=== PATIENT | female | born 1955 | race Caucasian/White ===

== ENCOUNTER → 2016-10-23 | Outpatient (CLI) | payer OTHER | LOC: CT 08:00 | DX: R91.8 Other nonspecific abnormal finding of lung field (principal) | CPT/HCPCS: 71250 ==

== ENCOUNTER → 2020-11-10 | Outpatient (CLI) | payer OTHER ==
[~2020-11-10] MED LIST: ALBUTEROL0.63 MG/3 INH; CARISOPRODOL350 MG PO; CENTRUM SILVER1 EAC1 PO; CYMBALTA60 MG PO; ELIQUIS2.5 MG PO; GABAPENTIN800 MG PO; GLUCOPHAGE500 MG PO; MOBIC15 MG PO; NORCO 10-325 T1 EACH PO; NORVASC10 MG PO; PERCOCET 10-321 EACH PO; PHENERGAN 12.12.5 M1 PO; PROTONIX40 MG PO; SPIRIVA RESPIMAT4 GM INH; VASOTEC 10 MG T10 MG PO; VITAMIN B-12100 MCG PO; VITAMIN D35000 UNI1 PO; XANAX1 MG PO
== END ==
LOC: KOH-I 13:00
DX: Z87.891 Personal history of nicotine dependence (principal); J43.9 Emphysema, unspecified; R91.8 Other nonspecific abnormal finding of lung field
CPT/HCPCS: 71271

== ENCOUNTER 2021-05-04 17:38 | Emergency (ER) | payer OTHER ==
[2021-05-04 20:58] LABS: HEMOGLOBIN 12.5 gm/dl (12.3-15.3); RED BLOOD COUNT 4.23 M/UL (4.00-5.10); WHITE BLOOD COUNT 9.3 K/UL (4.5-11.0)
[2021-05-04 21:46] LABS: BUN/CREATININE RATIO 16 (0-10)
[2021-05-04] MEDS ORDERED: Voltaren Gel 1 % TOP (22:18)
== END 2021-05-04 22:31 | disposition home or self-care (01) ==
LOC: ER1 17:38
PROVIDERS: Physician Assistant Medical
DX: M25.561 Pain in right knee (principal); E11.9 Type 2 diabetes mellitus without complications; I10 Essential (primary) hypertension; J44.9 Chronic obstructive pulmonary disease, unspecified; F17.210 Nicotine dependence, cigarettes, uncomplicated
CPT/HCPCS: 73564; 80053; 85025; 85379; 85610; 85652; 85730; 86140; 99283

== ENCOUNTER → 2021-12-05 | Outpatient (CLI) | payer OTHER ==
[~2021-12-05] MED LIST changes: +Voltaren Gel 1 % TOP
== END ==
LOC: KOH-I 14:15
DX: F17.210 Nicotine dependence, cigarettes, uncomplicated (principal); R91.8 Other nonspecific abnormal finding of lung field
CPT/HCPCS: 71271